=== PATIENT | male | born 2000 | race Hispanic/Latino ===

== ENCOUNTER 2023-06-29 23:02 | Emergency (ER) | payer MEDICAID, OTHER ==
[~2023-06-29] VITALS: Ht 175.3 cm; Wt 106.6 kg
[2023-06-30 01:16] VITALS: BP 140/72; PULSE 75; RESP 20; O2SAT 100
== END 2023-06-30 01:16 | disposition home or self-care (01) ==
LOC: EDH 23:02
DX: S93.491A Sprain of other ligament of right ankle, initial encounter (principal); X58.XXXA Exposure to other specified factors, initial encounter; Y93.89 Activity, other specified; Y92.89 Other specified places as the place of occurrence of the external cause; Y99.8 Other external cause status
CPT/HCPCS: 73610; 73630